=== PATIENT | female | born 1935 | race Caucasian/White ===

== ENCOUNTER 2024-12-04 15:42 | Emergency (ER) | payer MEDICARE, BC ==
[2024-12-04 17:03] LABS: APPEARANCE,URINE CLOUDY (CLEAR); GLUCOSE,URINE NEGATIVE (NEGATIVE); OCCULT BLOOD,URINE TRACE-INTACT (NEGATIVE)
[2024-12-04 17:11] LABS: SQUAMOUS EPITHELIAL CELLS,UR RARE /HPF
[2024-12-04 17:13] LABS: UROTHELIAL CELLS,URINE NOT SEEN /HPF
[2024-12-04 17:19] LABS: BASOPHILS ABSOLUTE AUTO 0.10 K/uL (0.00-0.10); BASOPHILS PERCENT AUTO 1.5 % (0.1-1.3); EOSINOPHILS ABSOLUTE AUTO 0.23 K/uL (0.00-0.40); EOSINOPHILS PERCENT AUTO 3.5 % (0.0-5.4); IMMATURE GRAN PERCENT AUTO 0.3 % (0.0-0.7); LYMPHOCYTES ABSOLUTE AUTO 2.48 K/uL (0.8-3.3); LYMPHOCYTES PERCENT AUTO 37.9 % (11.4-47.7); MONOCYTES ABSOLUTE AUTO 0.47 K/uL (0.20-0.90); MONOCYTES PERCENT AUTO 7.2 % (3.3-12.6); NEUTROPHILS ABSOLUTE AUTO 3.25 K/uL (1.0-7.6); NEUTROPHILS PERCENT AUTO 49.6 % (40.0-78.1); PLATELET COUNT,PLT 234 K/uL (130-375); RED BLOOD CELL COUNT 4.44 M/uL (3.77-5.24); WHITE BLOOD CELL COUNT,WBC 6.6 K/uL (3.2-11.0)
[2024-12-04 17:35] LABS: IMMATURE GRAN ABSOLUTE AUTO 0.02 K/uL (0.00-0.23)
[2024-12-04 17:44] LABS: ALANINE AMINOTRANSFERASE,ALT 25 U/L (12-78); ASPARTATE AMNIOTRANSFERASE,AST 19 U/L (15-37); BILIRUBIN TOTAL 0.3 mg/dL (0.2-1.0); BLOOD UREA NITROGEN,BUN 24 mg/dL (7-18); CARBON DIOXIDE,CO2 27 mmol/L (21-32); CHLORIDE,CL 106 mmol/L (100-108); CREATININE 0.7 mg/dL (0.6-1.0); EST CRCL DRUG DOSING (CG) 49.99 mL/min; ESTIMATED GFR 83 mL/min (>60); GLUCOSE RANDOM 127 mg/dL (74-106); POTASSIUM,K 4.1 mmol/L (3.6-5.2); PROTEIN TOTAL,TP 7.4 g/dL (6.4-8.2); SODIUM,NA 141 mmol/L (140-148); TROPONIN I HIGH SENSITIVITY 6.6 pg/mL (<=60.3)
[2024-12-04 17:47] LABS: A/G RATIO 1.0 (1.2-2.2)
[2024-12-04] MEDS: Sodium Chloride 0.9% 10 ML Syringe FLUSH ONE (18:30)
[2024-12-04] MEDS: Iopamidol 755 Mg/ML 100 ML Bottle IV ONE (18:30)
== END 2024-12-04 19:30 | disposition home or self-care (01) ==
LOC: JP.ED 15:42
DX: N39.0 Urinary tract infection, site not specified (principal); I10 Essential (primary) hypertension; Z79.899 Other long term (current) drug therapy
CPT/HCPCS: 36415; 70450; 70496; 70498; 80053; 81001; 83605; 84484; 85025; 87086; 93005; 99284; Q9967; 87088; 87186

== ENCOUNTER 2024-12-06 16:40 | Emergency (ER) | payer MEDICARE, BC ==
[2024-12-06 17:55] LABS: APPEARANCE,URINE CLEAR (CLEAR); GLUCOSE,URINE NEGATIVE (NEGATIVE); OCCULT BLOOD,URINE NEGATIVE (NEGATIVE)
== END 2024-12-06 19:50 | disposition home or self-care (01) ==
LOC: JP.ED 16:40
DX: R42 Dizziness and giddiness (principal); I10 Essential (primary) hypertension; E78.00 Pure hypercholesterolemia, unspecified; Z79.899 Other long term (current) drug therapy
CPT/HCPCS: 81003; 93971-RT; 99284